=== PATIENT | female | born 1980 | race African-American/Black ===

== ENCOUNTER 2016-11-06 14:12 | Emergency (ER) | payer OTHER ==
[2016-11-06 14:34] VITALS: BP 127/82
[2016-11-06] MEDS ORDERED: predniSONE TAB* 20 MG PO ONE (15:03)
--- NOTE | 2016-11-06 15:06 | UC ---
Skin Complaint HPI - HPI Summary HPI Summary: 36 yo female with itchy hand darlene since this AM Had similar rash early this summer Cleaned her tub yesterday - History of Current Complaint Chief Complaint: UCSkin Time Seen by Provider: 11/06/16 14:50 Stated Complaint: RASH HANDS Hx Obtained From: Patient Hx Last Menstrual Period: 10/04/16 Onset/Duration: Sudden Onset, Lasting Hours Timing: Constant Onset Severity: Mild Current Severity: Mild Pain Intensity: 0 Pain Scale Used: 0-10 Numeric Character: Pruritus, Raised Aggravating: Nothing Alleviating: Nothing - Allergy/Home Medications Allergies/Adverse Reactions: Allergies Allergy/AdvReac Type Severity Reaction Status Date / Time Nickel Allergy Rash Verified 11/06/16 14:34 Review of Systems Constitutional: Negative Skin: Rash Eyes: Negative ENT: Negative Respiratory: Negative Cardiovascular: Negative Gastrointestinal: Negative Genitourinary: Negative Motor: Negative Neurovascular: Negative Musculoskeletal: Negative Neurological: Negative Psychological: Negative Is Patient Immunocompromised?: No All Other Systems Reviewed And Are Negative: Yes PMH/Surg Hx/FS Hx/Imm Hx Previously Healthy: Yes - Surgical History Surgical History: Yes Surgery Procedure, Year, and Place: breast reduction. gallbladder - Family History Known Family History: Positive: Hypertension - Social History Alcohol Use: Occasionally Substance Use Type: None Smoking Status (MU): Light Every Day Tobacco Smoker Type: Cigars Amount Used/How Often: 5 cigs daily Length of Time of Smoking/Using Tobacco: 1 yr Have You Smoked in the Last Year: Yes Household Exposure Type: Cigars - Immunization History Most Recent Influenza Vaccination: no Physical Exam Triage Information Reviewed: Yes Appearance: Well-Appearing, No Pain Distress, Well-Nourished Vital Signs: Initial Vital Signs Temp 99 F 11/06/16 14:29 Pulse 86 11/06/16 14:29 Resp 16 11/06/16 14:29 BP 127/82 11/06/16 14:29 Pulse Ox 100 11/06/16 14:29 Vital Signs Reviewed: No Eyes: Positive: Conjunctiva Clear ENT: Positive: Hearing grossly normal. Negative: Nasal congestion, Nasal drainage, Tonsillar exudate, Trismus, Muffled/hoarse voice Neck: Positive: Supple, Nontender Respiratory: Positive: Lungs clear, Normal breath sounds, No respiratory distress Cardiovascular: Positive: RRR, No Murmur Musculoskeletal: Positive: ROM Intact, No Edema Neurological: Positive: Alert Psychological Exam: Normal Skin Exam: Other - tiny vesicles on both hands (primarily dorsum) Course/Dx - Diagnoses Provider Diagnoses: bilateral hand dermatitis Discharge - Discharge Plan Condition: Stable Disposition: HOME Prescriptions: Prednisone [Deltasone] 40 mg PO DAILY #10 tab Patient Education Materials: Contact Dermatitis (ED) Referrals: Zarina Huerta MD [Primary Care Provider] - If Needed Additional Instructions: cool soaks in epsom salts benadryl 25 mg 1-2 every 6 hours for itch
== END 2016-11-06 15:16 | disposition home or self-care (01) ==
LOC: UCCORT 14:12
DX: L30.9 Dermatitis, unspecified (principal); Z90.49 Acquired absence of other specified parts of digestive tract; F17.210 Nicotine dependence, cigarettes, uncomplicated
CPT/HCPCS: 99212; G0463; J7512

== ENCOUNTER 2017-10-09 14:40 | Emergency (ER) | payer OTHER ==
--- NOTE | 2017-10-09 14:57 | UC ---
Ear Complaint HPI - HPI Summary HPI Summary: Patient presents with 3 days of progressive right ear pain. Patient states she had an itch and site. Patient states she's been scratching it with a hairclip. Patient states progressive gotten more painful. Patient states when she chews she feels popping in her ear. Patient denies any drainage. No fevers or chills. No swelling. Patient states she was swimming approximately 10 days ago and is unsure if this is related. Patient without history of similar. Patient without history of ear tubes. Patient is not . Patient is not immunocompromised. Tetanus is up-to-date. Patient's medications reviewed this visit - History of Current Complaint Stated Complaint: RIGHT EAR COMPLAINT Time Seen by Provider: 10/09/17 14:55 Hx Obtained From: Patient Hx Last Menstrual Period: 10/04/16 ?: No - Allergies/Home Medications Allergies/Adverse Reactions: Allergies Allergy/AdvReac Type Severity Reaction Status Date / Time nickel Allergy Intermediate Rash Verified 10/09/17 15:05 PMH/Surg Hx/FS Hx/Imm Hx Previously Healthy: Yes - Surgical History Surgical History: Yes Surgery Procedure, Year, and Place: breast reduction. gallbladder - Family History Known Family History: Positive: None, Hypertension - Social History Occupation: Employed Full-time Lives: With Family Alcohol Use: Occasionally Substance Use Type: None Smoking Status (MU): Light Every Day Tobacco Smoker Type: Cigars Amount Used/How Often: 5 cigs daily Length of Time of Smoking/Using Tobacco: 1 yr Have You Smoked in the Last Year: Yes Household Exposure Type: Cigars - Immunization History Most Recent Influenza Vaccination: no Review of Systems Constitutional: Negative ENT: Ear Ache All Other Systems Reviewed And Are Negative: Yes Physical Exam - Summary Physical Exam Summary: Vital Signs Reviewed: Yes A+Ox3, no distress Eyes: Conjunctiva Clear, JUAQUIN. EOM intact and full ENT: Hearing grossly normal TM x 2 clear, right canal with edema and mild erythema no drainage no fluctuance, no open wounds, abraison,turbinates normal , mmoist, uvula midline, no exudate, no erythema no mastoid, no tmj pain no fluctance, no pain with palp along right cheek Neck: Positive: Supple, no lynphadenopathy Respiratory: Positive: No respiratory distress, No accessory muscle use + CTA throughout no w/r Cardiovascular: RRR nl s1, s2 no m/r CBT <2 sec abd soft + BS nt/nd no guarding, no distension Musculoskeletal Exam: LONGORIA x 4 without difficulty Strength Intact, ROM Intact Neurological: Positive: Alert, + sensation throughout Psychological: Positive: Normal Response To Family Skin: Positive: no rash, no ecchymosis Triage Information Reviewed: Yes Ear Complaint Course/Dx - Course Course Of Treatment: Patient with progressive discomfort in her right ear. Patient states she had itching and scratching. Patient concerned infection. Patient does have otitis externa on exam. Nontoxic appearing, no mastoid pain. We'll start Ciprodex drops. Motrin for pain strict return precautions. Patient comfortable in agreement with plan. Pt's BP elevated - recommend PCP f/ u - Differential Dx/Diagnosis Provider Diagnoses: otitis externa, right Discharge - Sign-Out/Discharge Documenting (check all that apply): Patient Departure All imaging exams completed and their final reports reviewed: No Studies - Discharge Plan Condition: Stable Disposition: HOME Prescriptions: Ciproflox/Dexameth OTIC.SUSP* [Ciprodex OTIC.SUSP*] 3 drop .SEE ORDER BID #1 btl Patient Education Materials: Otitis Externa (ED) Referrals: Zarina Huerta MD [Primary Care Provider] - Additional Instructions: - stay well hydrated. drink plenty of non-alcoholic, non-caffinated beverages - okay to alternate ibuprofen (Advil, Motrin) and tylenol every 3 hours as needed for pain - use ear drops 2 times a day for 7 days as prescribed - avoid sticking Q tips or other items in your ear - if you develop facial swelling, fever, increased pain or any other concerns it is recommended you return here, go to the emergency department, or follow-up with your primary care provider - Billing Disposition and Condition Condition: STABLE Disposition: Home
[2017-10-09 15:04] VITALS: BP 149/80
== END 2017-10-09 15:26 | disposition home or self-care (01) ==
LOC: UCCORT 14:40
DX: H60.91 Unspecified otitis externa, right ear (principal); F17.290 Nicotine dependence, other tobacco product, uncomplicated
CPT/HCPCS: 99212; G0463

== ENCOUNTER 2017-12-25 07:45 | Emergency (ER) | payer OTHER ==
[2017-12-25 08:00] VITALS: BP 134/90
--- NOTE | 2017-12-25 08:16 | UC ---
Throat Pain/Nasal Claude HPI - HPI Summary HPI Summary: cc: white tongue x 1 day noted her tongue is white this morning as she was brushing no pain or swelling of her tongue, has been on flagyl for BV, no fever, no chills - History of Current Complaint Chief Complaint: UCGeneralIllness Stated Complaint: TONGUE COMPLAINT Time Seen by Provider: 12/25/17 07:59 Hx Obtained From: Patient Hx Last Menstrual Period: "...the beginning of November..." Onset/Duration: Gradual Onset, Lasting Days - 1, Still Present Severity: Moderate Pain Intensity: 0 Cough: None Associated Signs & Symptoms: Positive: Negative Related History: Seasonal Allergies - Allergies/Home Medications Allergies/Adverse Reactions: Allergies Allergy/AdvReac Type Severity Reaction Status Date / Time nickel Allergy Intermediate Rash Verified 12/25/17 07:56 Home Medications: Home Medications Fexofenadine (NF) [Crystal (NF)] 60 mg PO Q12H PRN 12/25/17 [History Confirmed 12/25/17] PMH/Surg Hx/FS Hx/Imm Hx Previously Healthy: Yes - Surgical History Surgical History: Yes Surgery Procedure, Year, and Place: breast reduction. gallbladder - Family History Known Family History: Positive: None, Hypertension - Social History Alcohol Use: Occasionally Substance Use Type: None Smoking Status (MU): Light Every Day Tobacco Smoker Type: Cigars Amount Used/How Often: 1/4 PPD Length of Time of Smoking/Using Tobacco: Since Age 27 Have You Smoked in the Last Year: Yes Household Exposure Type: Cigarettes - Immunization History Most Recent Influenza Vaccination: no Review of Systems Constitutional: Negative Skin: Negative Eyes: Negative ENT: Negative Respiratory: Negative Cardiovascular: Negative Is Patient Immunocompromised?: No All Other Systems Reviewed And Are Negative: Yes Physical Exam Triage Information Reviewed: Yes Appearance: Well-Appearing, No Pain Distress, Well-Nourished Vital Signs: Initial Vital Signs Temp 98.8 F 12/25/17 07:55 Pulse 88 12/25/17 07:55 Resp 14 12/25/17 07:55 BP 134/90 12/25/17 07:55 Pulse Ox 100 12/25/17 07:55 Vital Signs Reviewed: Yes Eye Exam: Normal Eyes: Positive: Conjunctiva Clear ENT: Positive: Normal ENT inspection, Hearing grossly normal, Pharynx normal Neck: Positive: Supple, Nontender, No Lymphadenopathy Respiratory: Positive: Chest non-tender, Lungs clear, Normal breath sounds Cardiovascular: Positive: RRR, No Murmur, Pulses Normal Abdominal Exam: Normal Skin Exam: Normal Throat Pain/Nasal Course/Dx - Differential Dx/Diagnosis Provider Diagnoses: oral thrush Discharge - Sign-Out/Discharge Documenting (check all that apply): Patient Departure All imaging exams completed and their final reports reviewed: No Studies - Discharge Plan Condition: Stable Disposition: HOME Prescriptions: Nystatin SUSPENSION ORAL SYR* 5 ml PO QID #140 ml Patient Education Materials: Oral Candidiasis (ED) Referrals: Zarina Huerta MD [Primary Care Provider] - 7 Days - Billing Disposition and Condition Condition: STABLE Disposition: Home
== END 2017-12-25 08:17 | disposition home or self-care (01) ==
LOC: UCCORT 07:45
DX: B37.0 Candidal stomatitis (principal); F17.210 Nicotine dependence, cigarettes, uncomplicated
CPT/HCPCS: 99211; G0463

== ENCOUNTER 2018-05-23 07:01 | Day surgery (SDC) | payer OTHER ==
[~2018-05-23 07:01] MED LIST: Buffered Lidocaine 1% SYRIN* 1 ML/SYRINGE INTRADERM ONE; Dexamethasone IV* 4 MG/ML 1 ML (4 MG) IV SLOW PU ONE; Famotidine IV* 10 MG/ML 2 ML (20 mg) IV ONE; Lactated Ringers 1000 ML Bag* 1,000 ML IV SCH
[2018-05-23] MEDS ORDERED: Famotidine IV* 10 MG/ML 2 ML (20 mg) ONE (07:47)
[2018-05-23] MEDS ORDERED: Dexamethasone IV* 4 MG/ML 1 ML (4 MG) ONE (07:47)
[2018-05-23] MEDS ORDERED: ceFAZolin 2 GM in NS PREMIX(*) 2 GM/100 ML BAG IVPB ONE (07:48)
[2018-05-23] MEDS ORDERED: fentaNYL* 50 MCG/ML 2 ML VIAL (100 MCG VIAL) IV PRN (08:12)
[2018-05-23] MEDS ORDERED: Naloxone* 0.4 MG/ML 1 ML VIAL IV PRN (08:12)
[2018-05-23] MEDS ORDERED: Ondansetron INJ* 2 MG/ML VIAL IV PRN (08:12)
[2018-05-23] MEDS ORDERED: HYDROcodone/ACETAMIN 5-325 MG* 1 TAB PO PRN (08:12)
[2018-05-23] MEDS ORDERED: oxyCODONE/Acetamin 5/325 MG* TAB PO PRN (08:12)
[2018-05-23] MEDS ORDERED: Bupivacaine 0.25% SDV PF* 10 ML VIAL INJ ONE ×2 (08:15→09:18)
[2018-05-23] MEDS ORDERED: Midazolam* 1 MG/ML 5 ML VIAL (5 MG) ONE (08:16)
[2018-05-23] MEDS ORDERED: fentaNYL* 50 MCG/ML 2 ML VIAL (100 MCG VIAL) ONE ×2 (08:16→08:53)
[2018-05-23] MEDS ORDERED: Lidocaine 2% PF * 5 ML VIAL ONE (08:17)
[2018-05-23] MEDS ORDERED: Propofol* 10 MG/ML 20 ML BTL ONE (08:17)
[2018-05-23] MEDS ORDERED: Ketorolac INJ* 30 MG/ML 1 ML VIAL ONE (08:17)
[2018-05-23 09:17] VITALS: BP 117/78
--- NOTE | 2018-05-23 10:23 | OP ---
DATE OF OPERATION: 05/23/18 [facility] DATE OF : 84. SURGEON: Orestes Quiros MD. ENGINE BOSS: CHANO Leblanc. ANESTHESIOLOGIST: Dr. Monatna. ANESTHESIA: Local MAC. PRE-OP DIAGNOSIS: Right dorsal wrist ganglion cyst. POST-OP DIAGNOSIS: Right dorsal wrist ganglion cyst. OPERATIVE PROCEDURE: Excision of right dorsal wrist ganglion cyst. INDICATIONS: Mimi has a cyst that is symptomatic. It is quite large. She wanted to have it excised. ESTIMATED BLOOD LOSS: 2 mL. COMPLICATIONS: None. FINDINGS: See above and below. DESCRIPTION OF PROCEDURE: Mimi was seen in the preoperative holding area. The correct site, side and procedure were identified. We came back to the operating room. I infiltrated the operating area with 0.25% plain Marcaine. The arm was prepped and draped in the usual fashion and time-out was performed. I made a transverse incision over the dorsal wrist ganglion cyst. Dissection was carried down and cyst was identified and marginal excision was performed taking the cyst directly off the the dorsal wrist capsule that came off near the area of the scapholunate joint. Once I had excised the cyst and cauterized the dorsal wrist capsule. We irrigated out the wound. Skin was closed with 3- 0 Monocryl sutures and Steri-Strips. The wrist was placed in a short-arm cock- up plaster splint. Tourniquet was deflated and she was taken to the recovery room in stable condition. [id number]/CPS #: [id number] MTDD
== END 2018-05-23 09:50 | disposition home or self-care (01) ==
LOC: OREAST 07:01
PROVIDERS: ATTEND Orthopaedic Surgery Hand Surgery
DX: M67.431 Ganglion, right wrist (principal); Z72.0 Tobacco use; M19.90 Unspecified osteoarthritis, unspecified site; F41.8 Other specified anxiety disorders; K52.9 Noninfective gastroenteritis and colitis, unspecified
CPT/HCPCS: 81025; 88304; J0690; J1100; J1885; J2250; J2704; J3010; J3490

== ENCOUNTER 2018-07-17 08:09 | Emergency (ER) | payer OTHER ==
--- OUTSIDE RECORDS SUMMARY | 2018-07-17 08:18 | XMS REPORT | Continuity of Care Document ---
:1980 External Reference #:[id number] Author Name HieuChaparro schaeferie Care Team Providers Name Role Phone Imani Todd MD Primary Care Physician Unavailable Payers Date Identification Numbers Payment Provider Subscriber Policy Number: [id number] Madan Cardoso PayID: [id number] [address] [place] [address] Family History Date Family Member(s) Observation Comments General Non Viral Hepatitis General Drug Addiction General Depression Father Non Viral Hepatitis Father Drug Addiction Mother Depression Social History Type Date Description Comments Sex Unknown Marital Status Significant Other Lives With Female Partner Lives With Daughter Occupation [employer] ETOH Use Occasionally consumes alcohol Tobacco Use Start: Unknown Heavy tobacco smoker (more than 10 cigarettes/day) Smoking Status Reviewed: 07/05/18 Heavy tobacco smoker (more than 10 cigarettes/day) Exercise Type/Frequency Exercises sporadically Allergies, Adverse Reactions, Alerts Description No Known Drug Allergies Medications Active Medications SIG Qnty Indications Ordering Provider Date Fluoxetine HCL (PMDD) 1 by mouth Unknown 20mg every day as Capsules needed Benadryl Allergy 1 tab by mouth Unknown 25mg Tablets every night as needed Levocetirizine 1 every day as Unknown Dihydrochloride needed 5mg Tablets History Medications Tramadol HCL 1-2 tablets by 30tabs Orestes Quiros, 05/23/2018 - 50mg Tablets mouth every 6 MD 07/01/2018 hours as needed pain Fluticasone Propionate 2 puffs each nare Unknown - every in the 03/25/2018 50mcg/Act Suspension morning Fexofenadine HCL 1 by mouth every Unknown - 60mg day 05/09/2018 Tablets Metformin HCL 1 by mouth q day Unknown - 500mg 06/24/2018 Tablets Vital Signs Date Vital Result Comment 07/05/2018 8:27am Height 64 inches 5'4" Weight 225.00 lb Heart Rate 90 /min BP Systolic Sitting 144 mmHg BP Diastolic Sitting 90 mmHg Respiratory Rate 18 /min Pain Level 0 BMI (Body Mass Index) 38.6 kg/m2 05/31/2018 8:31am Height 64 inches 5'4" Weight 227.00 lb Heart Rate 86 /min BP Systolic Sitting 120 mmHg BP Diastolic Sitting 82 mmHg Respiratory Rate 18 /min Pain Level 0 BMI (Body Mass Index) 39.0 kg/m2 05/10/2018 8:26am Height 64 inches 5'4" Weight 227.00 lb BP Systolic Sitting 124 mmHg BP Diastolic Sitting 78 mmHg Respiratory Rate 16 /min Body Temperature 99.5 F Pain Level 0 BMI (Body Mass Index) 39.0 kg/m2 04/05/2018 1:25pm Height 64 inches 5'4" Weight 227.00 lb Heart Rate 83 /min BP Systolic Sitting 116 mmHg BP Diastolic Sitting 78 mmHg Respiratory Rate 16 /min Pain Level 0 O2 % BldC Oximetry 99 % BMI (Body Mass Index) 39.0 kg/m2 Results Test Date Facility Test Result H/L Range Note Laboratory test 05/23/2018 [facility] Point of Care 92 mg/dL N 70-[address] [place] [address] [phone] Laboratory test 05/22/2018 [facility] Surgical SEE RESULT 2 , [address] [place] [address] [phone] Voip Engineer: [id number] SEE RESULT BELOW Name: NICKIE CARDOSO : [address]: Orestes Quiros MD Acct: [id number] Unit: [id number] AGE: 37 Location: [facility] Re05/23/18 SEX: F Status: DEP SDC SPEC: [id number] [place]: 05/22/18-[address] [facility] [address]: Orestes Quiros MD REQ: [id number] RECD: 05/23/18 STATUS: SOUT _ ORDERED: LEVEL 3 COMMENTS: [id number] FINAL DIAGNOSIS Dorsal right wrist, excision: -- Ganglion cyst. PRE-OPERATIVE DIAGNOSIS Ganglion cyst right wrist GROSS DESCRIPTION The specimen is received in formalin labeled, Ganglion Cyst Right Wrist- Dorsal, and consists of a 1.5 x 0.9 x 0.8 cm tariq-pink irregular wrinkled rubbery fibrous tissue fragment with a small amount of adherent yellow fat. The cut surface is rubbery to wrinkled tariq-white. The specimen is inked, serially sectioned and entirely submitted in one cassette. Signed by and Reported on: Karol Chang MD 05/24/18 1829 END OF REPORT DEPARTMENT OF PATHOLOGY, [address] [place] [id number] Cheikh Delvalle M.D. 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
[2018-07-17 08:37] VITALS: BP 132/74
--- NOTE | 2018-07-17 09:15 | ED ---
Skin Complaint - HPI Summary HPI Summary: 37 yr old female with the complaint of itchy rash to the left hand, forearm and chest at times. The patient has had the rash come and go over the past week or so. She has had rash come and go during this time of the year since childhood. She gets allergy shots weekly. She has not had swelling of lips, no SOB, no tongue swelling. She has no other complaints. - History of Current Complaint Chief Complaint: UCSkin Time Seen by Provider: 07/17/18 08:43 Stated Complaint: SKIN CONCERN Hx Last Menstrual Period: 06/14/18 Pain Intensity: 0 - Allergy/Home Medications Allergies/Adverse Reactions: Allergies Allergy/AdvReac Type Severity Reaction Status Date / Time nickel Allergy Intermediate Rash Verified 07/17/18 08:30 ENVIRONMENTAL Allergy Unknown Uncoded 07/17/18 08:30 Reaction Details Home Medications: Home Medications Etonogest/Eth.estradiol (Nf) [Nuvaring Vaginal Ring] 1 each VAGINAL .SEE COMMENTS 07/17/18 [History Confirmed 07/17/18] PMH/Surg Hx/FS Hx/Imm Hx Endocrine/Hematology History: Denies: Hx Diabetes, Hx Thyroid Disease Cardiovascular History: Denies: Hx Hypertension, Hx Pacemaker/ICD, Other Cardiovascular Problems/ Disorders Respiratory History: Denies: Hx Asthma, Hx Chronic Obstructive Pulmonary Disease (COPD), Other Respiratory Problems/Disorders GI History: Reports: Other GI Disorders - CHRONIC DIARRHEA Denies: Hx Ulcer History: Denies: Other Problems/Disorders Musculoskeletal History: Reports: Hx Arthritis - KNEES Denies: Other Musculoskeletal History Sensory History: Denies: Hx Contacts or Glasses, Hx Hearing Aid Opthamlomology History: Denies: Hx Contacts or Glasses Neurological History: Denies: Other Neuro Impairments/Disorders Psychiatric History: Reports: Hx Anxiety - ON MEDICATION FOR, Hx Depression - ON MEDICATION FOR - Surgical History Surgery Procedure, Year, and Place: breast reduction. gallbladder-2015- [facility]. R wrist- ganglion cyst Hx Anesthesia Reactions: Yes - PARTIAL RIGHT LUNG COLLAPSED DURING GALLBLADDER SURGERY Infectious Disease History: No Infectious Disease History: Denies: Hx Clostridium Difficile, Hx Hepatitis, Hx Human Immunodeficiency Virus (HIV), Hx of Known/Suspected MRSA, Hx Shingles, Hx Tuberculosis, Hx Known/ Suspected VRE, Hx Known/Suspected VRSA, History Other Infectious Disease, Traveled Outside the [place] in Last 30 Days - Family History Known Family History: Positive: None, Hypertension - Social History Alcohol Use: Rare Substance Use Type: Reports: Marijuana Substance Use Comment - Amount & Last Used: MARIJUANA RARELY Smoking Status (MU): Light Every Day Tobacco Smoker Type: Cigars Amount Used/How Often: 1/2 PPD X OFF AND ON 6 YEARS Length of Time of Smoking/Using Tobacco: Since Age 27 Have You Smoked in the Last Year: No Review of Systems Constitutional: Negative Positive: Rash, Other - itching All Other Systems Reviewed And Are Negative: Yes Physical Exam Triage Information Reviewed: Yes Vital Signs On Initial Exam: Initial Vitals Temp Pulse Resp BP Pulse Ox 98.5 F 74 15 132/74 100 07/17/18 08:33 07/17/18 08:33 07/17/18 08:33 07/17/18 08:33 07/17/18 08:33 Vital Signs Reviewed: Yes Appearance: Positive: Well-Appearing, Obese Skin: Positive: Other - there is mild lichen appearance, to the back of the left hand. Nothing on the anterior upper chest at this time. No evidence of tinea. No scabs or tracts. uHe atopic dermatitis. Head/Face: Positive: Normal Head/Face Inspection Eyes: Positive: EOMI ENT: Positive: Normal ENT inspection Neck: Positive: Nontender Respiratory/Lung Sounds: Positive: Clear to Auscultation, Breath Sounds Present Cardiovascular: Positive: RRR. Negative: Murmur Abdomen Description: Negative: Distended Musculoskeletal: Positive: Strength/ROM Intact Neurological: Positive: Sensory/Motor Intact, Alert, Oriented to Person Place, Time, CN Intact II-III Psychiatric: Positive: Normal - [place] Coma Scale Best Eye Response: 4 - Spontaneous Best Motor Response: 6 - Obeys Commands Best Verbal Response: 5 - Oriented Coma Scale Total: 15 Diagnostics - Vital Signs Vital Signs Temp Pulse Resp BP Pulse Ox 07/17/18 08:33 98.5 F 74 15 132/74 100 - Laboratory Lab Statement: Any lab studies that have been ordered have been reviewed, and results considered in the medical decision making process. Course/Dx - Course Course Of Treatment: 37 yr old female with atopic type rash. She would not wait for me to research our records to see what was prescribed in the past for her. She got up and left without discharge instruction. She did not want oral steroids. She got up and said she will deal with this herself. - Diagnoses Provider Diagnoses: Atopic dermatitis Discharge - Sign-Out/Discharge Documenting (check all that apply): Patient Departure All imaging exams completed and their final reports reviewed: No Studies - Discharge Plan Condition: Good Disposition: ELOPEMENT Patient Education Materials: Dermatitis (ED) Referrals: Imani Todd MD [Primary Care Provider] - - Billing Disposition and Condition Condition: GOOD Disposition: Elopement
== END 2018-07-17 09:00 | disposition left against medical advice (07) ==
LOC: UCCORT 08:09
DX: L20.9 Atopic dermatitis, unspecified (principal); F17.210 Nicotine dependence, cigarettes, uncomplicated
CPT/HCPCS: 99212; G0463

== ENCOUNTER 2018-09-28 15:06 | Emergency (ER) | payer OTHER ==
[2018-09-28 15:35] VITALS: BP 141/89
--- NOTE | 2018-09-28 15:45 | UC ---
Back Pain HPI - HPI Summary HPI Summary: Patient is 38 year old female , who present today to the urgent care with low back pain for past 1 week. Pain started after getting on and off the right and an amusement park 1 week ago. She reports that she does have a history of low back pain intermittently since age of 21 and had roughly has about 2 episodes every year and she has done physical therapy in the past and does home exercises. Pain is localized in the lower back without any radiation down her legs. Denies any numbness, tingling, saddle anesthesia or incontinence. Pain is worse with any movement. She denies any groin pain. She took ibuprofen and used BenGay without much relief. - History of Current Complaint Chief Complaint: UCBackPain Stated Complaint: BACK PAIN Time Seen by Provider: 09/28/18 15:40 Hx Obtained From: Patient Hx Last Menstrual Period: LAST PERIOD WAS IN JUNE AND LASTED UNTIL TWO WEEKS AOG. ?: No Pain Intensity: 6 - Allergies/Home Medications Allergies/Adverse Reactions: Allergies Allergy/AdvReac Type Severity Reaction Status Date / Time nickel Allergy Intermediate Rash Verified 09/28/18 15:23 ENVIRONMENTAL Allergy Unknown Uncoded 09/28/18 15:23 Reaction Details Home Medications: Home Medications Aspirin/Caffeine [Elsa Back & Body Pain Ex] 1 tab PO PRN 09/28/18 [History] PMH/Surg Hx/FS Hx/Imm Hx - Additional Past Medical History Additional PMH: Past Medical History : Scheduled for ultrasound for uterine fibroids Past Surgical History: right wrist ganglion surgery, cholecystectomy, breast reduction surgery Family History : non contributory Social History : Rare alcohol, former smoker, rare marijuana use. Previously Healthy: Yes - Surgical History Surgical History: Yes Surgery Procedure, Year, and Place: breast reduction. gallbladder-2015- [facility]. R wrist- ganglion cyst - Family History Known Family History: Positive: None, Hypertension, Non-Contributory - Social History Alcohol Use: Rare Substance Use Type: Marijuana Substance Use Comment - Amount & Last Used: MARIJUANA RARELY Smoking Status (MU): Former Smoker Type: Cigars Amount Used/How Often: 1/2 PPD X OFF AND ON 6 YEARS Length of Time of Smoking/Using Tobacco: Since Age 27 Have You Smoked in the Last Year: No When Did the Patient Quit Smoking/Using Tobacco: JULY 2018 Household Exposure Type: Cigarettes - Immunization History Most Recent Influenza Vaccination: no Review of Systems All Other Systems Reviewed And Are Negative: Yes Constitutional: Positive: Negative Skin: Positive: Negative Eyes: Positive: Negative ENT: Positive: Negative Respiratory: Positive: Negative Cardiovascular: Positive: Negative Gastrointestinal: Positive: Negative Genitourinary: Positive: Negative Motor: Positive: Negative Neurovascular: Positive: Negative Musculoskeletal: Positive: Arthralgia - Low back pain, Decreased ROM - Thoracolumbar range of motion is limited and painful Neurological: Positive: Negative Psychological: Positive: Negative Is Patient Immunocompromised?: No Physical Exam - Summary Physical Exam Summary: Vital Signs Reviewed: Yes A+Ox3, no distress Eyes: Conjunctiva Clear ENT: Hearing grossly normal neck: supple Respiratory: Positive: No respiratory distress, No accessory muscle use Cardiovascular: skin color reflect adequate perfusion Musculoskeletal Exam: LONGORIA x 4 without difficulty Neurological: Positive: Alert, ambulatory without difficulty Psychological: Positive: Normal Response To Family Skin: Positive: no rash, no ecchymosis Musculo: Walks with a normal gait. Spine: No loss of the normal lumbar lordosis or step-off. There is tenderness to palpation in L3-L4 to L5-S1 midline and more tenderness in bilateral paraspinal muscles. Stability: No obvious instability. Strength: Flexion, extension, left rotation, left lateral bending, right lateral bending and right rotation strength is intact. ROM: Full range of motion but painful in all planes. Special Tests: Straight leg raise is negative bilaterally. Hip: Insp/Palp: Normal to inspection and palpation. Strength: 5/5 bilaterally. Normal muscle tone bilaterally. ROM: Bilateral hips: full ROM - internal and external rotation, pain-free Skin: No scars, rashes, lesions or ecchymosis. Neuro: Sensation intact to light touch. Motor and sensory intact. Reflexes: Left DTR's are intact. Right DTR's are intact. Toes downgoing. Coordination normal. Distal pulses intact. Triage Information Reviewed: Yes Vital Signs: Initial Vital Signs Temp 97.9 F 09/28/18 15:26 Pulse 83 09/28/18 15:26 Resp 16 09/28/18 15:26 BP 141/89 09/28/18 15:26 Pulse Ox 100 09/28/18 15:26 Vital Signs Reviewed: Yes Back Pain Course/Dx - Course Course Of Treatment: During the visit today, we discussed the findings ,consistent with lumbar strain. No radiculopathy . We discussed pain control and exercises for strengthening her back. I will prescribe the medication to the pharmacy . She will follow with her primary care doctor within a week. We discussed the option of starting physical therapy but she declined at this time. Patient expressed understanding . - Differential Dx/Diagnosis Provider Diagnosis: Lumbar strain Discharge - Sign-Out/Discharge Documenting (check all that apply): Patient Departure All imaging exams completed and their final reports reviewed: No Studies - Discharge Plan Condition: Stable Disposition: HOME Prescriptions: Cyclobenzaprine TAB* [Flexeril 10 MG TAB*] 10 mg PO BID PRN 10 Days #20 tab PRN Reason: Spasms - Back methylPREDNISolone [Medrol Dosepak 4 MG*] 4 mg PO .SEE SHAYY INSTRUCTION 6 Days # 1 shayy Naproxen [Naproxen 500 mg tab] 500 mg PO BID PRN 14 Days #28 tab PRN Reason: Pain - Moderate Patient Education Materials: Low Back Strain (ED), Lower Back Exercises (ED) Referrals: Imani Todd MD [Primary Care Provider] - 1 Week Additional Instructions: Please start taking the medication as prescribed to the pharmacy . Minimize bending, lifting and twisting activities Any lifting should be spine neutral Warm compresses to her low back will be helpful, 15 minutes at a time 3-4 times a day. Follow up with your primary care doctor in 1 week Patients blood pressure slightly high in Urgent care today , plan follow up with PCP for better control in 4 weeks Return to Urgent care / ER if symptoms get worse. - Billing Disposition and Condition Condition: STABLE Disposition: Home
== END 2018-09-28 16:04 | disposition home or self-care (01) ==
LOC: UCCORT 15:06
DX: S39.012A Strain of muscle, fascia and tendon of lower back, initial encounter (principal); X58.XXXA Exposure to other specified factors, initial encounter; Y93.89 Activity, other specified; Y92.831 Amusement park as the place of occurrence of the external cause; Z87.891 Personal history of nicotine dependence
CPT/HCPCS: 99212; G0463

== ENCOUNTER 2019-05-15 10:22 | Emergency (ER) | payer OTHER ==
--- OUTSIDE RECORDS SUMMARY | 2019-05-15 10:27 | XMS REPORT | Continuity of Care Document ---
:1980 External Reference #:[id number] Author Name Anibal Jean M.D. 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 Onset: 01/30/2013 subcutaneous tissue Social History Type Date Description Comments Sex Unknown Tobacco Use Start: Unknown currently smokes 1/2 Pack Daily ETOH Use Rarely consumes alcohol Tobacco Use Start: Unknown Patient is a current smoker, smokes every day Recreational Drug Use Denies Drug Use Allergies, Adverse Reactions, Alerts Active Allergies Reaction Severity Comments Date NKDA 01/30/2013 Nickel 05/17/2014 Medications Active Medications SIG Qnty Indications Ordering Provider Date Cholestyramine 1 to 2 scoops by 756gm R19.7 Ted, 10/31/2017 4GM/Dose mouth before Anibal Stewart Powder fatty meals to [place] address diarrhea Immunizations Description No Information Available Vital Signs Date Vital Result Comment 10/31/2017 3:16pm BP Systolic Sitting Right Arm 129 mmHg BP Diastolic Sitting Right Arm 91 mmHg Heart Rate 93 /min Respiratory Rate 14 /min Height 64 inches 5'4" Weight 222.00 lb BMI (Body Mass Index) 38.1 kg/m2 BSA (Body Surface Area) 2.05 m2 [place] body weight in kilograms 54 kg O2 % BldC Oximetry 100 % 02/08/2015 1:28pm BP Systolic Sitting Left Arm 137 mmHg BP Diastolic Sitting Left Arm 81 mmHg Heart Rate 72 /min Respiratory Rate 18 /min Height 64 inches 5'4" Weight 218.00 lb BMI (Body Mass Index) 37.4 kg/m2 BSA (Body Surface Area) 2.03 m2 Results Description No Information Available Procedures Description No Information Available Medical Devices Description No Information Available Encounters Description No Information Available Assessments Description No Information Available Plan of Treatment 10/31/2017 - Anibal Jean M.D.L03.319 Cellulitis of trunk, unspecifiedComments:[id number] Diarrhea, unspecifiedNew Medication: Cholestyramine 4 GM/Dose - 1 to 2 scoops by mouth before fatty meals to address diarrhea Functional Status Description No Information Available Mental Status Description No Information Available Referrals Description No Information Available
[2019-05-15 10:48] VITALS: BP 131/94
--- NOTE | 2019-05-15 10:50 | UC ---
Upper Extremity HPI - HPI Summary HPI Summary: Patient is a 38yo female presenting with "aching pain" in left arm since yesterday afternoon. Describes it from left elbow down into the palm of her left hand. Denies numbness and tingling. Denies fingers being affected. Denies decreased ROM. Denies known trauma or injury. Denies bruising and swelling. Denies aggravating/alleviating factors. Patient states she is concerned because she googled her symptoms and found that arm pain can be a symptom of a heart attack. Patient also admits she has anxiety. Denies chest pain and sob. States she feels well otherwise. Denies h/o heart conditions. 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 Taking ibuprofen and using bengay without relief. - History of Current Complaint Stated Complaint: LT ARM PAIN Hx Obtained From: Patient Hx Last Menstrual Period: 04/15/19 Pain Intensity: 4 Pain Scale Used: 0-10 Numeric - Allergies/Home Medications Allergies/Adverse Reactions: Allergies Allergy/AdvReac Type Severity Reaction Status Date / Time nickel Allergy Intermediate Rash Verified 05/15/19 10:34 ENVIRONMENTAL Allergy Unknown Uncoded 05/15/19 10:34 Reaction Details Home Medications: Home Medications Ibuprofen TAB* [Advil TAB*] 800 tab PO ONCE PRN 05/16/18 [History Confirmed 12/07] Etonogest/Eth.estradiol (Nf) [Nuvaring Vaginal Ring] 1 each VAGINAL .SEE COMMENTS 07/17/18 [History Confirmed 05/15/19] Acetaminophen [Non-Aspirin Extra Strengt] 500 mg PO PRN 05/15/19 [History] Cetirizine* [ZyrTEC 10 MG TAB*] 10 mg PO DAILY 05/15/19 [History Confirmed 05/14] FLUoxetine CAP* [PROzac CAP*] 40 mg PO DAILY 05/15/19 [History Confirmed ] Fluticasone NASAL SPRAY 50MCG* [Flonase NASAL SPRAY 50MCG*] 2 spray BOTH NARES DAILY 05/15/19 [History Confirmed 05/15/19] tiZANidine TAB* [Zanaflex TAB*] 2 mg PO TID PRN 05/15/19 [History Confirmed ] PMH/Surg Hx/FS Hx/Imm Hx Psychological History: Anxiety - Surgical History Surgical History: Yes Surgery Procedure, Year, and Place: breast reduction. gallbladder-2015- [facility]. R wrist- ganglion cyst - Family History Known Family History: Positive: None, Hypertension, Non-Contributory - Social History Alcohol Use: Rare Substance Use Type: Marijuana Substance Use Comment - Amount & Last Used: MARIJUANA RARELY Smoking Status (MU): Former Smoker Type: Cigars Amount Used/How Often: 1/2 PPD X OFF AND ON 6 YEARS Length of Time of Smoking/Using Tobacco: Since Age 27 Have You Smoked in the Last Year: No When Did the Patient Quit Smoking/Using Tobacco: JULY 2018 Household Exposure Type: Cigarettes - Immunization History Most Recent Influenza Vaccination: no Review of Systems All Other Systems Reviewed And Are Negative: Yes Constitutional: Positive: Negative Respiratory: Positive: Negative Cardiovascular: Positive: Negative Gastrointestinal: Positive: Negative Neurovascular: Positive: Negative Musculoskeletal: Positive: Arthralgia - left forearm pain. Negative: Decreased ROM, Edema Neurological/Mental Status: Positive: Negative. Negative: Paresthesia, Numbness Physical Exam Triage Information Reviewed: Yes Appearance: Well-Appearing, No Pain Distress, Well-Nourished Vital Signs: Initial Vital Signs Temp 98.2 F 05/15/19 10:39 Pulse 81 05/15/19 10:39 Resp 18 05/15/19 10:39 BP 131/94 05/15/19 10:39 Pulse Ox 99 05/15/19 10:39 Vital Signs Reviewed: Yes Eyes: Positive: Conjunctiva Clear ENT: Positive: Hearing grossly normal Neck: Positive: Supple Respiratory: Positive: No respiratory distress, No accessory muscle use Cardiovascular: Positive: Pulses Normal - strong radial pulses b/l, Brisk Capillary Refill - <2sec Musculoskeletal: Positive: Strength Intact, ROM Intact - left elbow/wrist, Other : - no TTP of left elbow, forearm, wrist, or hand. negative shaneka. negative tinel/phalen Neurological Exam: Other - sensation grossly intact Neurological: Positive: Alert Psychological: Positive: Age Appropriate Behavior Skin Exam: Normal - no erythema or ecchymosis Upper Extremity Course/Dx - Course Course Of Treatment: Discussed likely muscle strain vs pinched nerve with patient. Instructed to continue with rest and otc analgesics and to follow up with pcp if symptoms persist. Patient voiced understanding and agreed with plan. - Differential Dx/Diagnosis Differential Diagnosis/HQI/PQRI: Arthritis, Contusion, Strain, Sprain Provider Diagnosis: Left forearm pain Discharge ED - Sign-Out/Discharge Documenting (check all that apply): Patient Departure All imaging exams completed and their final reports reviewed: No Studies - Discharge Plan Condition: Stable Disposition: HOME Patient Education Materials: Arm Pain (ED) Referrals: Imani Todd MD [Primary Care Provider] - Additional Instructions: Your arm pain is likely caused by a pinched nerve or strained muscle. Rest and ice/heat to help alleviate symptoms. Continue to take over the counter pain medications as directed. Follow up with your primary care provider if pain persists. - Billing Disposition and Condition Condition: STABLE Disposition: Home
== END 2019-05-15 11:05 | disposition home or self-care (01) ==
LOC: UCCORT 10:22
DX: M79.632 Pain in left forearm (principal); F41.9 Anxiety disorder, unspecified; Z87.891 Personal history of nicotine dependence
CPT/HCPCS: 99211; G0463